=== PATIENT | male | born 1995 | race Caucasian/White ===

== ENCOUNTER 2022-09-25 19:15 | Inpatient (IN) | payer BC, OTHER ==
[~2022-09-25] VITALS: Ht 177.8 cm; Wt 79.4 kg
[2022-09-25] MEDS ORDERED: SODIUM CHLORIDE 0.9% 1000ML 1,000 ML ONE ×2 (19:46→20:22)
[2022-09-25] MEDS ORDERED: ONDANSETRON HCL INJ 2MG/ML 2ML 2 MG/ML VIAL ONE (19:46)
[2022-09-25] MEDS ORDERED: ONDANSETRON HCL INJ 2MG/ML 2ML 2 MG/ML VIAL IV STA (20:23)
[2022-09-25] MEDS ORDERED: SODIUM CHLORIDE 0.9% 1000ML 1,000 ML IV SCH ×2 (20:30)
[2022-09-25 21:36] LABS: BASOPHILS # (AUTO) 0.1 (0.0-0.1); BASOPHILS % 0.4 % (0.0-1.0); EOSINOPHILS % 0.1 % (0.0-6.0); HEMATOCRIT 52.1 % (38.2-49.6); HEMOGLOBIN 18.4 g/dL (14.0-18.0); LYMPHOCYTES # (AUTO) 2.5 (1.0-3.2); MEAN CORPUSCULAR HEMOGLOBIN 30.2 pg (28-32); MEAN CORPUSCULAR HGB CONC 35.3 g/dL (31-35); MEAN CORPUSCULAR VOLUME 85.6 fL (81-99); MONOCYTES # (AUTO) 1.2 (0.2-0.8); MONOCYTES % 8.8 % (4.4-11.3); NEUTROPHILS # (AUTO) 10.1 (2.1-6.9); NEUTROPHILS % 72.2 % (38.7-80.0); PLATELET COUNT 314 x10e3/uL (140-360); RED BLOOD COUNT 6.09 x10e6/uL (4.3-5.7); RED CELL DISTRIBUTION WIDTH 12.4 % (11.7-14.4)
[2022-09-25 21:51] LABS: ANION GAP 29.6 mmol/L (8-16); BILIRUBIN,DIRECT 0.4 mg/dL (0.0-0.5); CALCIUM 11.8 mg/dL (8.4-10.2); CREATININE, SERUM 3.53 mg/dL (0.72-1.25); POTASSIUM 4.6 mmol/L (3.5-5.1)
[2022-09-25] MEDS ORDERED: ONDANSETRON HCL INJ 2MG/ML 2ML 2 MG/ML VIAL IV PRN (22:00)
[2022-09-25 22:03] LABS: ALBUMIN 5.9 g/dL (3.5-5.0)
[2022-09-25] MEDS: SODIUM CHLORIDE 0.9% 1000ML 1,000 ML IV SCH (22:25)
[2022-09-26 05:55] LABS: BASOPHILS % 0.4 % (0.0-1.0); EOSINOPHILS # (AUTO) 0.1 (0.0-0.4); EOSINOPHILS % 0.9 % (0.0-6.0); HEMATOCRIT 45.5 % (38.2-49.6); HEMOGLOBIN 15.3 g/dL (14.0-18.0); LYMPHOCYTES # (AUTO) 3.1 (1.0-3.2); LYMPHOCYTES % 31.1 % (18.0-39.1); MEAN CORPUSCULAR HEMOGLOBIN 30.6 pg (28-32); MEAN CORPUSCULAR HGB CONC 33.6 g/dL (31-35); MONOCYTES # (AUTO) 1.4 (0.2-0.8); MONOCYTES % 13.6 % (4.4-11.3); NEUTROPHILS # (AUTO) 5.4 (2.1-6.9); NEUTROPHILS % 53.7 % (38.7-80.0); PLATELET COUNT 246 x10e3/uL (140-360); RED CELL DISTRIBUTION WIDTH 12.6 % (11.7-14.4)
[2022-09-26 06:39] LABS: ALBUMIN 4.3 g/dL (3.5-5.0); ALBUMIN/GLOBULIN RATIO 1.4 (0.8-2.0); ANION GAP 16.8 mmol/L (8-16); CALCIUM 8.9 mg/dL (8.4-10.2); CREATININE, SERUM 1.74 mg/dL (0.72-1.25); MAGNESIUM 2.3 MG/DL (1.3-2.1); PHOSPHORUS 5.3 MG/DL (2.3-4.7); POTASSIUM 3.8 mmol/L (3.5-5.1)
[2022-09-26] MEDS: SODIUM CHLORIDE 0.9% 1000ML 1,000 ML IV SCH ×3 (06:47→16:51)
[2022-09-26] MEDS ORDERED: ACETAMINOPHEN 325 MG TAB PO PRN (09:00)
[2022-09-26] MEDS ORDERED: MELATONIN 3 MG TAB PO PRN (09:00)
[2022-09-26] MEDS ORDERED: DOCUSATE SODIUM 100 MG CAP PO PRN (09:00)
[2022-09-26] MEDS ORDERED: SIMETHICONE 80 MG CHEW PO PRN (09:00)
[2022-09-26 09:36] VITALS: BP 118/68; O2SAT 100
[2022-09-26 09:38] VITALS: BP 118/68; O2SAT 100
[2022-09-26 12:29] VITALS: BP 120/68; PULSE 50; RESP 20; TEMP 98.4; O2SAT 98
[2022-09-26 15:44] VITALS: BP 103/71; PULSE 54; RESP 20; TEMP 98.2; O2SAT 100
[2022-09-26 20:08] VITALS: BP 113/69; PULSE 57; RESP 18; TEMP 98.1; O2SAT 97
== END 2022-09-26 20:10 | disposition home or self-care (01) | DRG 923 ==
LOC: FSED 19:20 → ERHOLD 21:52 → MED/SURG 09-26 11:16
PROVIDERS: ADMIT Internal Medicine; ATTEND Internal Medicine
DX: T67.5XXA Heat exhaustion, unspecified, initial encounter (principal); M62.82 Rhabdomyolysis; N17.9 Acute kidney failure, unspecified; E87.20 Acidosis, unspecified; E86.0 Dehydration; E83.52 Hypercalcemia; X58.XXXA Exposure to other specified factors, initial encounter; Y92.89 Other specified places as the place of occurrence of the external cause; F12.90 Cannabis use, unspecified, uncomplicated; F17.290 Nicotine dependence, other tobacco product, uncomplicated; Z20.822 Contact with and (suspected) exposure to COVID-19; Z59.6 Low income
CPT/HCPCS: 0223U; 36415; 74176; 80048; 80053; 80076; 80307; 81003; 82550; 83735; 84100; 85025; 99285; J2405; J7030